=== PATIENT | female | born 1990 | race Caucasian/White ===

== ENCOUNTER 2016-07-16 02:41 | Emergency (ER) | payer OTHER ==
[2016-07-16 03:37] LABS: BASOPHIL % 0.2 % (0-2); PLATELET COUNT 337 x10^3mcL (130-400); RED CELL DISTRIBUTION WIDTH 14.1 % (11.5-14.5)
[2016-07-16 03:48] LABS: CALCIUM 9.7 mg/dL (8.5-10.1); CARBON DIOXIDE 24.3 mmol/L (21-32); CHLORIDE SERUM 102 mmol/L (98-107); CREATININE SERUM 0.8 mg/dL (0.6-1.0); GFR1 > 60 mL/min; GLUCOSE SERUM 120 mg/dL (74-106); SODIUM SERUM 138 mmol/L (136-145)
[2016-07-16 03:52] LABS: ALBUMIN 4.7 g/dL (3.4-5.0); ALKALINE PHOSPHATASE 77 U/L (46-116); ALT/SGPT 20 U/L (14-59); AST/SGOT 17 U/L (15-37); BILIRUBIN TOTAL 0.71 mg/dL (0.20-1.00)
[2016-07-16 03:53] LABS: TOTAL PROTEIN, SERUM 8.5 g/dL (6.4-8.2)
[2016-07-16 05:39] VITALS: BP 145/99
== END 2016-07-16 05:39 | disposition home or self-care (01) ==
LOC: ED 02:41
PROVIDERS: Emergency Medicine
DX: R60.9 Edema, unspecified (principal); F41.9 Anxiety disorder, unspecified
CPT/HCPCS: 83880; Q0092